=== PATIENT | female | born 1950 | race African-American/Black ===

== ENCOUNTER → 2017-07-14 | Outpatient (CLI) | payer MEDICARE, OTHER ==
--- NOTE | 2017-07-14 10:37 | WOMENS IMAGING REPORT ---
EXAM DESCRIPTION: 3D SCREENING MAMMO BILAT COMPLETED DATE/TIME: 07/14/2017 7:41 am REASON FOR STUDY: SCREENING MAMMO Z12.31 ENCNTR SCREEN MAMMOGRAM FOR MALIGNANT NEOPLASM OF LANDRY COMPARISON: Annual priors dating back to April 2009. TECHNIQUE: Standard craniocaudal and mediolateral oblique views of each breast recorded using digita l acquisition and breast tomosynthesis. LIMITATIONS: None. FINDINGS: No masses, calcifications or architectural distortion. No areas of suspicion. Read with the assistance of CAD. .[facility] - R2 Cenova Version 1.3 .[facility] - R2 Cenova Version 1.3 .[facility] - R2 Cenova Version 2.4 .[facility] [place] - R2 Cenova Version 2.4 .[facility] - R2 Cream Hauler Version 9.2 IMPRESSION: NORMAL MAMMOGRAM. BIRADS 1. BREAST DENSITY: a. The breasts are almost entirely fatty. BIRAD: 1 NEGATIVE RECOMMENDATION: ROUTINE SCREENING COMMENT: The patient has been notified of the results by letter per SA requirements. Additional no tification policies are in place for contacting patient with suspicious or incomplete findings. Quality ID #225: The [employer] recommends an annual screening mammogram for women aged 40 years or over. This facility utilizes a reminder system to ensure that all patients receive reminder letters, and/or direct phone calls for appointments. This includes reminders for routine scr eening mammograms, diagnostic mammograms, or other Breast Imaging Interventions when appropriate. Th is patient will be placed in the appropriate reminder system. The [employer] (ACR) has developed recommendations for screening MRI of the breast s in certain patient populations, to be used in conjunction with mammography. Breast MRI surveillanc e may be appropriate for women with more than 20% lifetime risk of developing breast cancer as deter mined by genetic testing, significant family history of the disease, or history of mantle radiation f or Hodgkins Disease. ACR Practice Guidelines 2008. DBT Technology DBT is a type of tomographic mammography. With conventional mammography, overlapping breast tissue ma y make lesions difficult to detect, even with good compression. DBT uses an x-ray tube that rotates a round the breast, taking images at different angles. These images are then combined to create thin sl ices of the breast that the radiologist can view as a 3D reconstruction. The [employer] unit can perform full-field digital mammograms (2D imaging); or DBT (3D imaging); or both, in a combination mode that quickly performs both the mammogram and the tomosynthesis scan while the breast is still compressed. PQRS 6045F: Fluoroscopic imaging is not utilized for breast tomosynthesis. TECHNICAL DOCUMENTATION: FINDING NUMBER: (1) ASSESSMENT: (1) JOB ID: [id number] [employer]- All Rights Reserved
== END ==
LOC: WI 07:15
PROVIDERS: ATTEND Internal Medicine
DX: Z12.31 Encounter for screening mammogram for malignant neoplasm of breast (principal)
CPT/HCPCS: 77063; G0202; 77067

== ENCOUNTER 2018-01-28 07:35 | Day surgery (SDC) | payer MEDICARE, OTHER ==
--- NOTE | 2018-01-27 21:39 | EKG REPORT ---
SEVERITY:- NORMAL ECG - SINUS RHYTHM : Confirmed by: Ashley Childress 27-Jan-2018 21:38:40
[~2018-01-28 07:35] MED LIST: CEFAZOLIN 1 GM/D5W RTU 1 GM/50 ML RTUPB IV PRN
[2018-01-28] MEDS ORDERED: MIDAZOLAM 2 MG/2 ML INJ ONE (08:39)
[2018-01-28] MEDS ORDERED: FENTANYL CITRATE INJ/PF 100 MCG/2 ML AMPUL ONE ×2 (08:39→11:05)
[2018-01-28] MEDS ORDERED: PROPOFOL INJ 200 MG/20 ML VIAL IV ONE (08:40)
[2018-01-28] MEDS ORDERED: POLYMYXIN B SULFATE INJ 500000 UNIT VIAL ONE (08:46)
[2018-01-28] MEDS ORDERED: NORMAL SALINE INJ/PF 0.9% 10 ML SDV ONE (08:46)
[2018-01-28] MEDS ORDERED: LIDOCAINE 2% INJ (20 MG/ML) 20 ML MDV ONE (08:47)
[2018-01-28] MEDS ORDERED: BACITRACIN INJ 50,000 UNIT VIAL ONE (08:47)
[2018-01-28] MEDS ORDERED: BUPIVACAINE HCL 0.5 % INJ/PF 30 ML SDV ONE (08:47)
[2018-01-28] MEDS ORDERED: KETAMINE HCL INJ 500 MG/10 ML VIAL ONE (09:19)
[2018-01-28] MEDS ORDERED: BUPIVACAINE INJ/PF LIPOSOME/PF 266 MG/20 ML SDV ONE (10:24)
[2018-01-28] MEDS ORDERED: CEFAZOLIN 1 GM/D5W RTU 1 GM/50 ML RTUPB IV ONE (12:16)
--- NOTE | 2018-01-28 12:37 | RADIOLOGY REPORT (SQ) ---
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 FLUOROSCOPY TIME: 2 seconds 2 images saved to PACS. TECHNIQUE: Intra-operative images acquired during surgical procedure to evaluate progress. NUMBER OF IMAGES: 0.2 LIMITATIONS: None. FINDINGS: 2 images reveal arthroplasty at the great toe MP joint. No malalignment or fracture evide nt on limited imaging. Please correlate with operative note. IMPRESSION: IMAGE(S) OBTAINED DURING PROCEDURE. COMMENT: Quality ID 145: Final reports for procedures using fluoroscopy that document radiation exp osure indices, or exposure time and number of fluorographic images (if radiation exposure indices are not available) Please consult full operative report of the attending physician for description of the procedure. TECHNICAL DOCUMENTATION: JOB ID: [id number] [employer]- All Rights Reserved Reading location - IP/workstation name: [email or web address]
--- NOTE | 2018-01-28 12:37 | RADIOLOGY REPORT (SQ) ---
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 FLUOROSCOPY TIME: 2 seconds 2 images saved to PACS. TECHNIQUE: Intra-operative images acquired during surgical procedure to evaluate progress. NUMBER OF IMAGES: 0.2 LIMITATIONS: None. FINDINGS: 2 images reveal arthroplasty at the great toe MP joint. No malalignment or fracture evident on limited imaging. Please correlate with operative note. IMPRESSION: IMAGE(S) OBTAINED DURING PROCEDURE. COMMENT: Quality ID 145: Final reports for procedures using fluoroscopy that document radiation exposure indices, or exposure time and number of fluorographic images (if radiation exposure indices are not available) Please consult full operative report of the attending physician for description of the procedure. TECHNICAL DOCUMENTATION: JOB ID: [id number] [employer]- All Rights Reserved Reading location - IP/workstation name: [email or web address]
--- NOTE | 2018-01-28 16:06 | SURGICARE OPERATIVE REPORT E ---
[facility] Operative Report NAME: BOONE BOWEN AGE: 67Y DATE OF SURGERY: 01/28/2018 ROOM: PREOPERATIVE DIAGNOSIS: DEGENERATIVE JOINT DISEASE OF THE FIRST METATARSOPHALANGEAL JOINT OF THE PATIENT'S RIGHT FOOT. POSTOPERATIVE DIAGNOSIS: DEGENERATIVE JOINT DISEASE OF THE FIRST METATARSOPHALANGEAL JOINT OF THE PATIENT'S RIGHT FOOT. SURGEON: ZULEIMA PA DPM PROJECT ENG SURGEON: Gaby William DPM OPERATION: Cerda bunionectomy with double stem Vilchis implant of the first metatarsophalangeal joint right foot. PROCEDURE: On 01/28/2018, the patient was admitted to [facility] with complaints of painful right foot and was taken to the operating room where following induction of intravenous sedation and regional local anesthesia, the patient's right foot was prepped. During the prep, the patient was moving and contaminated her foot. Multiple attempts were tried to get the patient to the proper level of sedation, to prevent her from moving during the procedure. It was felt by the anesthesiologist sedation was not going to be adequate for this patient, so she was converted to general anesthetic at that time. Sterile prep was completed successfully. Tourniquet was placed at proximal ankle malleoli. Sterile draping was completed. Esmarch was applied to the foot. Tourniquet was inflated to the level of 250 mmHg and purposed for hemostasis. Esmarch was removed and the following procedure performed. Attention was directed to the dorsal aspect of the patient's first metatarsophalangeal joint where a 5 cm linear incision was placed and the medial long extensor tendon was deep into the subcutaneous tissue and superficial fascia. All bleeding vessels were clamped, ligated, and Bovied as necessary for hemostasis. Incision was further deep and via sharp and blunt dissection and the long extensor tendon was identified and retracted laterally for further evaluation. Incision was made in the capsular and periosteal structures in a similar fashion as the skin incision and freed from the osseous attachments. Joints surfaces were examined and noted to have multiple erosions consistent with DJD. It was felt implant arthroplasty was the appropriate procedure. Utilizing a sagittal saw, the base of the proximal phalanx was osteotomized approximately one centimeter distal to its articular base and it was removed from the wound en toto. The head of the first metatarsal was then osteomized perpendicular to the long axis. Then, utilizing a rotary drill and a side cutting bur, the proximal and distal medullary canals of the 1st metatarsal and proximal phalanx were then reamed. Next, Kate tree rasp was then inserted. The canals were reamed, and utilizing the trial broaches, were sized for 2.0 trial implant which was inserted, tested for Range of motion, which was excellent. Size appeared to be excellent as well. Intraoperative x-rays were obtained and it was felt that #2 implant was the proper size. At this time, further reaming was performed. All sharp osseous segments were rasped smooth. The area was then flushed with copious amounts of sterile antibiotic solution and inspected for any remaining soft tissue or osseous debris, with none being noted. Toe was further examined and felt that the sesamoid apparatus was not adequately released at this time, so the dissection was carried out to the medial aspect and the tibial sesamoid was then removed from the wound en toto. The longus flexor tendon was identified and noted to be intact. The fibular sesamoid was further freed from its distal attachments and was found to be freely flowing proximal to the plantar aspect of the first metatarsal head. It was felt that retraction was adequate and the patient would not suffer any consequences of weightbearing on that sesamoid and was left intact. At that time, the implant was obtained. The grommet was placed into the first metatarsal shaft and slightly tapped for seating. The grommet to the base of the proximal phalanx was placed onto the implant. The 2-0 implant was then inserted into the first metatarsal shaft first and amended to the proximal phalanx. It should be noted that the wound was flushed with copious amounts of sterile antibiotic solution and inspected for remaining soft tissue or osseous debris prior to inserting the implant. At this time, the implant was then placed through full range of motion, which was noted to be excellent. At this time, the longer extensor tendon was transposed more midline position and temporarily clamped to the medial capsule. Intraoperative x-rays were obtained and the implant at the toe was noted to be in excellent position at this time. Range of motion was excellent, exceeding 45 degrees of dorsiflexion on the table. It was felt that the correction was excellent at this time. Capsular and periosteal structure was then coapted and maintained with simple interrupted suture of 3-0 Vicryl. The long extensor tendon was freed from its lateral most attachments and transposed more midline position and sutured to the nail capsule. Subcutaneous tissue was coapted and maintained with simple interrupted suture of 4-0 Vicryl. The skin incision was then coapted and maintained with interrupted horizontal mattress suture of 5-0 nylon. Exparel was then injected subcutaneously in the periwound area, utilizing 17 mL of Exparel. Sterile dressing consisting of Tirso silk, 4 x 4s, Pretty, Kerlix, and Coflex was applied to the patient's right foot. Tourniquet was deflated. Capillary filling time was noted to be instantaneous to all digits. The patient appeared to tolerate surgery and anesthesia well and was taken from the operating room to recovery room to be further monitored by the Anesthesia Department. DICTATING PHYSICIAN: ZULEIMA PA DPM [id number] PHY#: [id number] ID: [id number] JOB#: [id number] ACCT: [id number] cc:ZULEIMA PA DPM > MTDD
== END 2018-01-28 12:55 | disposition home or self-care (01) ==
LOC: SC 07:35
PROVIDERS: ATTEND Preventive Medicine Undersea and Hyperbaric Medicine
PROC: 0QBN0ZZ Excision of Right Metatarsal, Open Approach (ICD-10-PCS; principal; 2018-01-28 08:45)
DX: M19.071 Primary osteoarthritis, right ankle and foot (principal); I10 Essential (primary) hypertension; K21.9 Gastro-esophageal reflux disease without esophagitis; E11.9 Type 2 diabetes mellitus without complications; G47.30 Sleep apnea, unspecified; Z96.653 Presence of artificial knee joint, bilateral; E66.9 Obesity, unspecified; Z85.528 Personal history of other malignant neoplasm of kidney; Z79.899 Other long term (current) drug therapy; Z88.8 Allergy status to other drugs, medicaments and biological substances; Z90.5 Acquired absence of kidney; Z68.44 Body mass index [BMI] 60.0-69.9, adult; Z88.2 Allergy status to sulfonamides; Z79.4 Long term (current) use of insulin
CPT/HCPCS: 28292; 93005; 82962; 73620; 93010; J2250; J3490 ×6; J0690; J3010; J2704; C9290; 01480; 76000

== ENCOUNTER → 2018-07-21 | Outpatient (CLI) | payer MEDICARE, OTHER ==
--- NOTE | 2018-07-21 13:41 | WOMENS IMAGING REPORT ---
EXAM DESCRIPTION: 3D SCREENING MAMMO BILAT COMPLETED DATE/TIME: 07/21/2018 8:07 am REASON FOR STUDY: SCREENING MAMMO Z12.31 ENCNTR SCREEN MAMMOGRAM FOR MALIGNANT NEOPLASM OF LANDRY COMPARISON: 07/14/2017 and 06/06/2015. TECHNIQUE: Standard craniocaudal and mediolateral oblique views of each breast recorded using digita l acquisition and breast tomosynthesis. LIMITATIONS: None. FINDINGS: No masses, calcifications or architectural distortion. No areas of suspicion. Read with the assistance of CAD. .[facility] - R2 Cenova Version 1.3 .[facility] - R2 Cenova Version 1.3 .[facility] - R2 Cenova Version 2.4 .[facility] [place] - R2 Cenova Version 2.4 .[facility] - R2 Basting Cleaner Version 9.2 IMPRESSION: NORMAL MAMMOGRAM. BIRADS 1. BREAST DENSITY: a. The breasts are almost entirely fatty. BIRAD: 1 NEGATIVE RECOMMENDATION: ROUTINE SCREENING COMMENT: The patient has been notified of the results by letter per SA requirements. Additional no tification policies are in place for contacting patient with suspicious or incomplete findings. Quality ID #225: The [employer] recommends an annual screening mammogram for women aged 40 years or over. This facility utilizes a reminder system to ensure that all patients receive reminder letters, and/or direct phone calls for appointments. This includes reminders for routine scr eening mammograms, diagnostic mammograms, or other Breast Imaging Interventions when appropriate. Th is patient will be placed in the appropriate reminder system. The [employer] (ACR) has developed recommendations for screening MRI of the breast s in certain patient populations, to be used in conjunction with mammography. Breast MRI surveillanc e may be appropriate for women with more than 20% lifetime risk of developing breast cancer as deter mined by genetic testing, significant family history of the disease, or history of mantle radiation f or Hodgkins Disease. ACR Practice Guidelines 2008. DBT Technology DBT is a type of tomographic mammography. With conventional mammography, overlapping breast tissue ma y make lesions difficult to detect, even with good compression. DBT uses an x-ray tube that rotates a round the breast, taking images at different angles. These images are then combined to create thin sl ices of the breast that the radiologist can view as a 3D reconstruction. The [employer] unit can perform full-field digital mammograms (2D imaging); or DBT (3D imaging); or both, in a combination mode that quickly performs both the mammogram and the tomosynthesis scan while the breast is still compressed. PQRS 6045F: Fluoroscopic imaging is not utilized for breast tomosynthesis. TECHNICAL DOCUMENTATION: FINDING NUMBER: (1) ASSESSMENT: (1) JOB ID: [id number] [employer]- All Rights Reserved Reading location - IP/workstation name: [facility]
== END ==
LOC: WI 07:23
PROVIDERS: ATTEND Internal Medicine
DX: Z12.31 Encounter for screening mammogram for malignant neoplasm of breast (principal)
CPT/HCPCS: 77063; 77067

== ENCOUNTER 2018-08-05 13:54 | Emergency (ER) | payer OTHER, MEDICARE ==
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
[2018-08-05] MEDS ORDERED: ONDANSETRON 4 MG TAB.RAPDIS PO ONE (15:18)
[2018-08-05] MEDS ORDERED: MORPHINE SULFATE 10 MG/ML INJ IM ONE (15:18)
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
[2018-08-05 16:39] LABS: ABSOLUTE BASOPHILS # (AUTO) 0.1 10^3/uL (0.0-0.2); ABSOLUTE EOSINOPHILS # (AUTO) 0.4 10^3/uL (0.0-0.6); ABSOLUTE LYMPHOCYTES (AUTO) 1.6 10^3/uL (0.5-4.7); ABSOLUTE MONOCYTES (AUTO) 0.6 10^3/uL (0.1-1.4); ABSOLUTE NEUT (AUTO) 3.6 10^3/uL (1.7-8.2); BASOPHILS % (AUTO) 0.9 % (0-2); EOSINOPHILS % (AUTO) 6.4 % (0-6); HEMATOCRIT 27.7 % (36.0-47.0); HEMOGLOBIN 8.7 g/dL (12.0-15.5); LYMPHOCYTES % (AUTO) 25.7 % (13-45); MEAN CORPUSCULAR HEMOGLOBIN 28.1 pg (27.0-33.4); MEAN CORPUSCULAR HGB CONC 31.5 g/dL (32.0-36.0); MEAN CORPUSCULAR VOLUME 89 fl (80-97); MONOCYTES % (AUTO) 9.4 % (3-13); PLATELET COUNT 171 10^3/uL (150-450); RED BLOOD COUNT 3.11 10^6/uL (3.72-5.28); RED CELL DISTRIBUTION WIDTH 19.6 % (11.5-14.0); SEGMENTED NEUTROPHILS % (AUTO) 57.6 % (42-78); TOTAL CELLS COUNTED % (AUTO) 100 %; WHITE BLOOD COUNT 6.2 10^3/uL (4.0-10.5)
[2018-08-05 16:55] LABS: ANION GAP 8 (5-19); BLOOD UREA NITROGEN 17 mg/dL (7-20); CARBON DIOXIDE 24 mmol/L (22-30); CHLORIDE 111 mmol/L (98-107); GLUCOSE 89 mg/dL (75-110); POTASSIUM 4.1 mmol/L (3.6-5.0); SODIUM 142.7 mmol/L (137-145)
[2018-08-05] MEDS ORDERED: HYDROCODONE/ACETAMINOPHEN 5-325 MG (6 TAB/ER DISP) PO PRN (17:34)
[2018-08-05 17:55] VITALS: BP 135/62
--- NOTE | 2018-08-05 22:40 | EKG REPORT ---
SEVERITY:- NORMAL ECG - SINUS RHYTHM : Confirmed by: Ashley Childress 05-Aug-2018 22:40:11
== END 2018-08-05 18:00 | disposition home or self-care (01) ==
LOC: ER 13:54
DX: S20.219A Contusion of unspecified front wall of thorax, initial encounter (principal); E11.649 Type 2 diabetes mellitus with hypoglycemia without coma; R51 Headache; M54.2 Cervicalgia; R07.9 Chest pain, unspecified; V87.7XXA Person injured in collision between other specified motor vehicles (traffic), initial encounter; Z79.4 Long term (current) use of insulin; I10 Essential (primary) hypertension
CPT/HCPCS: 93005; 99284; 96372; 36415; 82962; 85025; 80048; 84484; 71046; 70450; 72125; 93010; S0119; J2270

== ENCOUNTER → 2018-08-12 | Outpatient (CLI) | payer MEDICARE, OTHER ==
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
== END ==
LOC: OD 11:15
PROVIDERS: ATTEND Internal Medicine
DX: M79.605 Pain in left leg (principal)

== ENCOUNTER → 2018-09-10 | Outpatient (CLI) | payer MEDICARE, OTHER ==
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
== END ==
LOC: SP 08:15
PROVIDERS: ATTEND Internal Medicine
DX: R22.43 Localized swelling, mass and lump, lower limb, bilateral (principal)
CPT/HCPCS: 93970

== ENCOUNTER 2018-09-14 23:16 | Emergency (ER) | payer MEDICARE, OTHER ==
[2018-09-15] MEDS ORDERED: HYDROCODONE/ACETAMINOPHEN 10-325 MG TABLET PO ONE (01:10)
--- NOTE | 2018-09-15 01:12 | ER Document Report ---
ED Medical Screen (RME) - General Chief Complaint: Fall Injury Stated Complaint: FALL, HEAD LACERATION, SHOULDER BACK AND NECK PAIN Time Seen by Provider: 09/15/18 01:09 Notes: Patient is a 68-year-old female presenting to the emergency department complaining of a head laceration after a fall. Patient states it was a mechanical fall she tripped and fell. Patient denies any lightheadedness, dizziness, weakness prior to the fall. Patient states she did not lose consciousness and has not vomited since the event. Patient did notice some blood to the right occipital area which is what prompted her visit to the emergency room. Patient states she has generalized back pain at this time as well. Patient states she uses lidocaine patches on her right arm for chronic osteoarthritis. Patient denies numbness or tingling in any extra Physical exam: Dried blood noted right occiput. Patient has a brace in her hair it is very hard to see where the dried blood came from. No active bleeding at this time. Area of dried blood is non-boggy, no hematoma or swelling noted. 5 out of 5 strength in all 4 extremities. I have greeted and performed a rapid initial assessment of this patient. A comprehensive ED assessment and evaluation of the patient, analysis of test results and completion of the medical decision making process will be conducted by additional ED providers. TRAVEL OUTSIDE OF THE [place] IN LAST 30 DAYS: No - Related Data Allergies/Adverse Reactions: pseudoephedrine [From Sudafed] Allergy (Severe, Verified 09/16/16 17:05) Anaphylaxis exenatide [From Byetta] Allergy (Verified 09/16/16 17:05) Past Medical History - Past Medical History Cardiac Medical History: Reports: Hx Hypercholesterolemia, Hx Hypertension - MEDICATED Denies: Hx Heart Attack Pulmonary Medical History: Reports: Hx COPD, Hx Sleep Apnea - On CPap Denies: Hx Asthma Neurological Medical History: Reports: Hx Migraine. Denies: Hx Cerebrovascular Accident, Hx Seizures Endocrine Medical History: Reports: Hx Diabetes Mellitus Type 2 Renal/ Medical History: Denies: Hx Peritoneal Dialysis Malignancy Medical History: Reports: Hx Renal (Kidney) Cancer - Left renal cell carcinoma GI Medical History: Reports: Hx Gastroesophageal Reflux Disease. Denies: Hx Hepatitis, Hx Hiatal Hernia, Hx Ulcer Musculoskeltal Medical History: Reports Hx Arthritis, Reports Hx Gout Psychiatric Medical History: Denies: Hx Depression Infectious Medical History: Denies: Hx Hepatitis Past Surgical History: Reports: Hx Abdominal Surgery - wound vac present, Hx Breast Surgery - reduction, Hx Cholecystectomy, Hx Hysterectomy, Hx Orthopedic Surgery - Bilateral total knee replacement, Other - Bilat breast reductn, lap band placemnt, lap band removal, left nephrectomy. Denies: Hx Mastectomy, Hx Open Heart Surgery, Hx Pacemaker - Immunizations Hx Diphtheria, Pertussis, Tetanus Vaccination: Yes Physical Exam - Vital signs Vitals: Temp Pulse Resp BP Pulse Ox 97.9 F 96 20 161/56 H 97 09/15/18 00:12 09/15/18 00:12 09/15/18 00:12 09/15/18 00:12 09/15/18 00:12 Course - Vital Signs Vital signs: Temp Pulse Resp BP Pulse Ox 97.9 F 96 20 161/56 H 97 09/15/18 00:12 09/15/18 00:12 09/15/18 00:12 09/15/18 00:12 09/15/18 00:12 Doctor's Discharge - Discharge Referrals: VALERIE SIDHU MD [Primary Care Provider] - Follow up as needed
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
[2018-09-15 03:10] VITALS: BP 159/70
== END 2018-09-15 03:10 | disposition home or self-care (01) ==
LOC: ER 23:16
DX: S09.90XA Unspecified injury of head, initial encounter (principal); S00.01XA Abrasion of scalp, initial encounter; W19.XXXA Unspecified fall, initial encounter; I10 Essential (primary) hypertension; Z79.899 Other long term (current) drug therapy; J44.9 Chronic obstructive pulmonary disease, unspecified; E11.9 Type 2 diabetes mellitus without complications
CPT/HCPCS: 99283; A9270

== ENCOUNTER 2018-10-31 19:35 | Emergency (ER) | payer MEDICARE ==
--- NOTE | 2018-10-31 21:22 | ER Document Report ---
HPI - HPI Patient complains to provider of: rash Time Seen by Provider: 10/31/18 19:54 Pain Level: 4 Context: 68 female with insulin-dependent diabetes mellitus presents to the emergency department for itchy rash on her left hand with minimal involvement on her right dorsal hand that started a few days ago. Patient states she cannot take the rash and she has recovered and she "I am going to tear my skin off and there will not be any ". Patient denies any fevers, chills, nausea, vomiting, changes in laundry soaps, changes in diet. Patient recently started using Eucrisa topical prescribed by Dr. Sidhu just prior to the rash starting. Past Medical History - Social History Smoking Status: Never Smoker Chew tobacco use (# tins/day): No Frequency of alcohol use: None Drug Abuse: None Family History: CAD, CVA, DM Patient has suicidal ideation: No Patient has homicidal ideation: No - Past Medical History Cardiac Medical History: Reports: Hx Hypercholesterolemia, Hx Hypertension - MEDICATED Denies: Hx Heart Attack Pulmonary Medical History: Reports: Hx COPD, Hx Sleep Apnea - On CPap Denies: Hx Asthma Neurological Medical History: Reports: Hx Migraine. Denies: Hx Cerebrovascular Accident, Hx Seizures Endocrine Medical History: Reports: Hx Diabetes Mellitus Type 2 Renal/ Medical History: Denies: Hx Peritoneal Dialysis Malignancy Medical History: Reports: Hx Renal (Kidney) Cancer - Left renal cell carcinoma GI Medical History: Reports: Hx Gastroesophageal Reflux Disease. Denies: Hx Hepatitis, Hx Hiatal Hernia, Hx Ulcer Musculoskeletal Medical History: Reports Hx Arthritis, Reports Hx Gout Psychiatric Medical History: Denies: Hx Depression Infectious Medical History: Denies: Hx Hepatitis Past Surgical History: Reports: Hx Abdominal Surgery - wound vac present, Hx Breast Surgery - reduction, Hx Cholecystectomy, Hx Hysterectomy, Hx Orthopedic Surgery - Bilateral total knee replacement, Other - Bilat breast reductn, lap band placemnt, lap band removal, left nephrectomy. Denies: Hx Mastectomy, Hx Open Heart Surgery, Hx Pacemaker - Immunizations Hx Diphtheria, Pertussis, Tetanus Vaccination: Yes Vertical Provider Document - CONSTITUTIONAL Agree With Documented VS: Yes Notes: PHYSICAL EXAMINATION: Reviewed vital signs and charting by RN GENERAL: Well-appearing, well-nourished and in no acute distress. HEAD: Atraumatic, normocephalic. EYES: Pupils equal round, extraocular movements intact, sclera anicteric, conjunctiva are normal. ENT: nares patent. Moist mucous membranes. NECK: Normal range of motion EXTREMITIES: Normal range of motion, no pitting or edema. No cyanosis. NEUROLOGICAL: Face symmetric. PSYCH: Normal mood, normal affect. SKIN: Warm, Dry, normal turgor, raised papular-like rash on the dorsal aspect of patient's left hand, middle finger slightly macerated from being covered with a bandage and some mild weeping of serous fluid from an area on her middle finger. Other involvement other than a small area on her right dorsal hand - INFECTION CONTROL TRAVEL OUTSIDE OF THE [place] IN LAST 30 DAYS: No Course - Re-evaluation Re-evalutation: 10/31/18 22:09 Well-appearing 68 female presents for a rash. Patient states she did start taking Eucrisa and the rash happened shortly after that. An adverse reaction of Eucrisa is a hypersensitivity reaction which could be a rash, severe itching. I instructed the patient to immediately stop applying the Eucrisa and gave her an Atarax dispense pack with a prescription for Atarax. Because the patient is an insulin-dependent diabetic and is obese I am refraining from giving her any systematic corticosteroids, but did instruct her that she could apply topical hydrocortisone. I gave her instruction that if she starts to have anaphylactic type symptoms to call 911 and come in by ambulance. Patient is stable for discharge. 10/31/18 22:11 - Vital Signs Vital signs: Temp Pulse Resp BP Pulse Ox 99.6 F 100 16 157/76 H 94 10/31/18 19:40 10/31/18 19:40 10/31/18 19:40 10/31/18 19:40 10/31/18 19:40 Discharge - Discharge Clinical Impression: Rash and nonspecific skin eruption Condition: Good Disposition: HOME, SELF-CARE Additional Instructions: You are seen in the emergency department this evening for a rash of unclear origin. It is most likely related to the Eucrisa that you recently started taking. 1 of the adverse effects is a hypersensitivity reaction which it appears that you have. Please stop using this medication immediately and follow-up with Dr. Sidhu on Friday. I have given you a medication called Atarax that you can take home with you to help get you through the weekend. I have also given you prescription for it as well that you can use for itching and inflammation. Please do not drive when taking this medication as it can cause drowsiness. If the rash continues to spread up your arms, your throat starts closing up, or you have any signs of difficulty breathing please return to the emergency department as this is signs of an anaphylactic reaction. Prescriptions: Hydroxyzine HCl [Atarax 50 mg Tablet] 50 mg PO PRN PRN #14 tablet PRN Reason: Referrals: VALERIE SIDHU MD [Primary Care Provider] - Follow up as needed
[2018-10-31] MEDS ORDERED: HYDROXYZINE PAMOATE 25 MG CAPSULE (4 CAP/ER DISP) PO ONE (21:30)
[2018-10-31 21:38] VITALS: BP 140/71
== END 2018-10-31 21:38 | disposition home or self-care (01) ==
LOC: ER 19:35
DX: R21 Rash and other nonspecific skin eruption (principal); L29.8 Other pruritus; E11.9 Type 2 diabetes mellitus without complications; Z79.4 Long term (current) use of insulin; E66.9 Obesity, unspecified; I10 Essential (primary) hypertension; J44.9 Chronic obstructive pulmonary disease, unspecified; Z85.528 Personal history of other malignant neoplasm of kidney; Z90.5 Acquired absence of kidney
CPT/HCPCS: 99282; J3490

== ENCOUNTER → 2018-11-13 | Outpatient (CLI) | payer MEDICARE, OTHER ==
--- NOTE | 2018-11-13 13:58 | RADIOLOGY REPORT (SQ) ---
EXAM DESCRIPTION: CHEST PA/LATERAL COMPLETED DATE/TIME: 11/13/2018 1:48 pm REASON FOR STUDY: SARCOIDOSIS COMPARISON: 08/05/2018 EXAM PARAMETERS: NUMBER OF VIEWS: two views TECHNIQUE: Digital Frontal and Lateral radiographic views of the chest acquired. RADIATION DOSE: NA LIMITATIONS: Low lung volumes. FINDINGS: LUNGS AND PLEURA: Persistent scarring or atelectasis in the lung bases. No effusions. MEDIASTINUM AND HILAR STRUCTURES: No masses or contour abnormalities. HEART AND VASCULAR STRUCTURES: Heart normal size. No evidence for failure. BONES: No acute findings. HARDWARE: None in the chest. OTHER: No other significant finding. IMPRESSION: Persistent scar atelectasis in the lung bases. Findings are accentuated by low lung vol umes. No consolidation. TECHNICAL DOCUMENTATION: JOB ID: [id number] [employer]- All Rights Reserved Reading location - IP/workstation name: [email or web address]
== END ==
LOC: OD 13:24
PROVIDERS: ATTEND Internal Medicine
DX: D86.9 Sarcoidosis, unspecified (principal)
CPT/HCPCS: 71046

== ENCOUNTER 2018-11-14 11:43 | Emergency (ER) | payer MEDICARE, OTHER ==
[2018-11-14] MEDS ORDERED: HYDROCODONE/ACETAMINOPHEN 5-325 MG TABLET PO ONE (13:34)
--- NOTE | 2018-11-14 13:54 | ER Document Report ---
HPI - HPI Patient complains to provider of: Wound recheck Time Seen by Provider: 11/14/18 12:29 Onset: Yesterday Quality of pain: Achy Pain Level: 4 Context: Patient states that she had a skin biopsy performed by her primary doctor in the office yesterday. Patient states the wound was sutured but the stitches seem to have come loose a little bit. Patient complains of tenderness to the site. Patient also complains of left eye itching. Patient states she was given an antibiotic eyedrop prescription but has not filled the prescription yet. Patient would also like to get her eye rechecked today. Patient denies any change in vision. Patient denies any contact lens use. Associated Symptoms: Other - Left wrist pain, left eye irritation. denies: Fever Exacerbated by: Denies Relieved by: Denies Similar symptoms previously: Yes Recently seen / treated by doctor: Yes - ROS ROS below otherwise negative: Yes Systems Reviewed and Negative: Yes All other systems reviewed and negative - CONSTITUTIONAL Constitutional: DENIES: Fever, Chills - EENT EENT: REPORTS: Eye problems - MUSCULOSKELETAL Musculoskeletal: REPORTS: Extremity pain - DERM Skin Color: Normal Notes: Sutured wound to left wrist Past Medical History - General Information source: Patient - Social History Smoking Status: Never Smoker Chew tobacco use (# tins/day): No Frequency of alcohol use: None Drug Abuse: None 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 Denies: Hx Cerebrovascular Accident, Hx Seizures Endocrine Medical History: Reports: Hx Diabetes Mellitus Type 2 Renal/ Medical History: Denies: Hx Peritoneal Dialysis Malignancy Medical History: Reports: Hx Renal (Kidney) Cancer - Left renal cell carcinoma GI Medical History: Reports: Hx Gastroesophageal Reflux Disease. Denies: Hx Hepatitis, Hx Hiatal Hernia, Hx Ulcer Musculoskeletal Medical History: Reports Hx Arthritis, Reports Hx Gout Psychiatric Medical History: Denies: Hx Depression Infectious Medical History: Denies: Hx Hepatitis Past Surgical History: Reports: Hx Abdominal Surgery - wound vac present, Hx Breast Surgery - reduction, Hx Cholecystectomy, Hx Hysterectomy, Hx Orthopedic Surgery - Bilateral total knee replacement, Other - Bilat breast reductn, lap band placemnt, lap band removal, left nephrectomy. Denies: Hx Mastectomy, Hx Open Heart Surgery, Hx Pacemaker - Immunizations Hx Diphtheria, Pertussis, Tetanus Vaccination: Yes Vertical Provider Document - CONSTITUTIONAL Agree With Documented VS: Yes Exam Limitations: No Limitations General Appearance: WD/WN, No Apparent Distress - INFECTION CONTROL TRAVEL OUTSIDE OF THE [place] IN LAST 30 DAYS: No - HEENT HEENT: Atraumatic, Normocephalic Notes: Mild injection of sclera of left eye, conjunctive inflamed, no corneal abrasion, ulcer or foreign body or dendrite. No fluorscein uptake - NECK Neck: Normal Inspection, Supple. negative: Lymphadenopathy-Left, Lymphadenopathy-Right - RESPIRATORY Respiratory: Breath Sounds Normal, No Respiratory Distress - CARDIOVASCULAR Cardiovascular: Regular Rate, Regular Rhythm Pulses: Normal: Radial - MUSCULOSKELETAL/EXTREMETIES Musculoskeletal/Extremeties: MAEW, FROM - NEURO Level of Consciousness: Awake, Alert, Appropriate Motor/Sensory: No Motor Deficit - DERM Integumentary: Warm, Dry, Laceration - Tenderness to dorsal aspect of left wrist wound with 2 intact sutures, wound slightly dehisced, no purulent drainage, no surrounding erythema Course - Re-evaluation Re-evalutation: 11/14/18 13:52 Patient has a prescription for antibiotic eyedrops given to her by her primary doctor yesterday although she has not filled this prescription yet. Patient was concerned about the tenderness that she is having to her biopsy site. No concern for infection at this time aside from the conjunctivitis. Patient encouraged to get her antibiotic drops filled and take as prescribed. Patient encouraged to follow-up with her [employer] consultant Friday as well as her primary doctor for a recheck of her biopsy site. - Vital Signs Vital signs: Temp Pulse Resp BP Pulse Ox 99.0 F 113 H 22 H 178/78 H 92 11/14/18 11:54 11/14/18 11:54 11/14/18 11:54 11/14/18 11:54 11/14/18 11:54 Discharge - Discharge Clinical Impression: Encounter for wound re-check Conjunctivitis Qualifiers: Conjunctivitis type: unspecified Laterality: left Qualified Code(s): H10.9 - Unspecified conjunctivitis Condition: Stable Disposition: HOME, SELF-CARE Instructions: Conjunctivitis ([facility]), Dressing Instructions for Open Wounds ([facility]) Additional Instructions: Return immediately for any new or worsening symptoms Followup with your primary care provider, call Friday to make a followup appointment Follow-up with your [employer] consultant, call Friday for an appointment Get eyedrop prescription filled and take as directed. Referrals: VALERIE SIDHU MD [Primary Care Provider] - 11/16/18
[2018-11-14 14:35] VITALS: BP 168/80
== END 2018-11-14 14:30 | disposition home or self-care (01) ==
LOC: ER 11:43
DX: Z48.817 Encounter for surgical aftercare following surgery on the skin and subcutaneous tissue (principal); H10.9 Unspecified conjunctivitis; T49.5X6A Underdosing of ophthalmological drugs and preparations, initial encounter; Z91.128 Patient's intentional underdosing of medication regimen for other reason; Z91.14 Patient's other noncompliance with medication regimen; M25.532 Pain in left wrist; I10 Essential (primary) hypertension; J44.9 Chronic obstructive pulmonary disease, unspecified; E11.9 Type 2 diabetes mellitus without complications; Z85.528 Personal history of other malignant neoplasm of kidney
CPT/HCPCS: 99282

== ENCOUNTER 2018-11-16 10:53 | Observation (INO) | payer MEDICARE, OTHER ==
[2018-11-16 13:34] LABS: ALANINE AMINOTRANSFERASE 34 U/L (9-52); ALBUMIN 3.8 g/dL (3.5-5.0); ALKALINE PHOSPHATASE 105 U/L (38-126); ANION GAP 7 (5-19); ASPARTATE AMINO TRANSFERASE 45 U/L (14-36); BILIRUBIN,DIRECT 0.2 mg/dL (0.0-0.4); BILIRUBIN,TOTAL 0.3 mg/dL (0.2-1.3); BLOOD UREA NITROGEN 20 mg/dL (7-20); CALCIUM 10.6 mg/dL (8.4-10.2); CARBON DIOXIDE 25 mmol/L (22-30); CHLORIDE 112 mmol/L (98-107); GLUCOSE 129 mg/dL (75-110); POTASSIUM 4.2 mmol/L (3.6-5.0); SODIUM 143.8 mmol/L (137-145); TOTAL PROTEIN 6.1 g/dL (6.3-8.2)
[2018-11-16 13:39] LABS: HEMATOCRIT 29.7 % (36.0-47.0); HEMOGLOBIN 9.7 g/dL (12.0-15.5); MEAN CORPUSCULAR HEMOGLOBIN 29.3 pg (27.0-33.4); MEAN CORPUSCULAR HGB CONC 32.6 g/dL (32.0-36.0); MEAN CORPUSCULAR VOLUME 90 fl (80-97); RED CELL DISTRIBUTION WIDTH 19.8 % (11.5-14.0); WHITE BLOOD COUNT 8.1 10^3/uL (4.0-10.5)
[2018-11-16] MEDS ORDERED: DEXTROSE 50%-WATER SYRINGE 25 GM/50 ML DOSE IV PRN (14:00)
[2018-11-16] MEDS ORDERED: DEXTROSE 40% GEL 15 GM TUBE X 2 PO PRN (14:00)
[2018-11-16] MEDS ORDERED: DEXTROSE 40% GEL 15 GM TUBE PO PRN (14:00)
[2018-11-16] MEDS ORDERED: GLUCAGON,HUMAN RECOMB 1 MG INJ IM PRN (14:00)
[2018-11-16] MEDS ORDERED: DEXTROSE 50%-WATER SYRINGE 12.5 GM/25 ML DOSE IV PRN (14:00)
[2018-11-16 14:02] LABS: PLATELET COUNT 152 10^3/uL (150-450)
[2018-11-16] MEDS: METHYLPREDNISOLONE INJ 125 MG/2 ML SDV IV SCH ×2 (14:09→17:59)
[2018-11-16] MEDS: NORMAL SALINE 1000 ML 1,000 ML IV PRN (14:09)
[2018-11-16] MEDS: INSULIN LISPRO 100 UNIT/ML 3 ML VIAL SUBCUT SCH ×3 (16:53→22:10)
[2018-11-16] MEDS ORDERED: CHLORPHENIRAMINE MALEATE 4 MG TABLET PO PRN (18:33)
[2018-11-16] MEDS ORDERED: CYCLOBENZAPRINE HCL 10 MG TABLET PO PRN (18:33)
[2018-11-16] MEDS ORDERED: PHENTERMINE HCL 37.5 MG PO SCH (18:45)
--- NOTE | 2018-11-16 18:50 | RADIOLOGY REPORT (SQ) ---
EXAM DESCRIPTION: CHEST SINGLE VIEW COMPLETED DATE/TIME: 11/16/2018 6:12 pm REASON FOR STUDY: sob COMPARISON: 11/13/2018. EXAM PARAMETERS: NUMBER OF VIEWS: One view. TECHNIQUE: Single frontal radiographic view of the chest acquired. RADIATION DOSE: NA LIMITATIONS: None. FINDINGS: LUNGS AND PLEURA: No opacities, masses or pneumothorax. No pleural effusion. MEDIASTINUM AND HILAR STRUCTURES: No masses. Contour normal. HEART AND VASCULAR STRUCTURES: Heart normal in size. Normal vasculature. BONES: No acute findings. HARDWARE: None in the chest. OTHER: No other significant finding. IMPRESSION: NO ACUTE RADIOGRAPHIC FINDING IN THE CHEST. TECHNICAL DOCUMENTATION: JOB ID: [id number] [employer] All Rights Reserved Reading location - IP/workstation name: [email or web address]
[2018-11-16] MEDS ORDERED: HYDROXYZINE HCL 10 MG TABLET PO PRN (19:24)
[2018-11-16 20:39] LABS: ARTERIAL BLOOD BASE EXCESS -4.7 mmol/L; ARTERIAL BLOOD H2CO3 1.17 mmol/L (1.05-1.35); ARTERIAL BLOOD HCO3 20.6 mmol/L (20-24); ARTERIAL BLOOD PH 7.34 (7.35-7.45); ARTERIAL BLOOD PO2 85.9 mmHg (80-100); ARTERIAL BLOOD TOTAL CO2 21.8 mmol/L (21-25)
[2018-11-16] MEDS: LIDOCAINE 5% (700 MG) TRANSDERMAL ADH..PATCH TOP SCH (20:40)
[2018-11-16] MEDS: GABAPENTIN 300 MG CAPSULE PO SCH ×2 (20:40→21:09)
[2018-11-16 20:41] LABS: ARTERIAL BLOOD FIO2 2L
[2018-11-16] MEDS: ATORVASTATIN CALCIUM 40 MG TABLET PO SCH (21:08)
[2018-11-16] MEDS: BUPROPION HCL 100 MG TABLET PO SCH (21:08)
[2018-11-16] MEDS: DOXEPIN HCL 25 MG CAPSULE PO SCH (21:09)
[2018-11-16] MEDS: SUCRALFATE 1 GM TABLET PO SCH (21:28)
[2018-11-16] MEDS: LOSARTAN POTASSIUM 50 MG TABLET PO SCH (21:30)
[2018-11-16] MEDS: COLCHICINE 0.6 MG TABLET PO SCH (21:30)
[2018-11-16] MEDS: PRAMIPEXOLE DI-HCL 0.25 MG TABLET PO SCH (21:31)
[2018-11-16] MEDS: TOPIRAMATE 25 MG TABLET PO SCH (21:32)
--- NOTE | 2018-11-16 21:52 | PDOC H&P ---
History of Present Illness Admission Date/PCP: 11/16/18 10:53 VALERIE SIDHU MD History of Present Illness: BOONE BOWEN is a 68 year old female, She came to the office today for e valuation of uncontrolled diabetes, she has skin lesion that looks suspicious for sarcoidosis, I saw her on Friday in the office I did a punch biopsy of 1 of the lesion, the pathology result is not back yet. She was prescribed prednisone p.o. 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 I brought her in for observation because of the hyperglycemia which is secondary to the prednisone I thought she needed to be admitted in a controlled environment to administer the Glucocorticoid and also monitor the blood sugar very closely for 24 hours after which she will be discharged. She has history of diabetes mellitus, she is morbidly obese the BMI is 64 despite a history of gastric bypass surgery, history of kidney cancer status post cryosurgery.The skin lesion is diffuse edema involving predominantly the upper extremities it is scaly with areas of plaque Past Medical History Cardiac Medical History: Reports: Hyperlipidema, Hypertension Pulmonary Medical History: Reports: Asthma, Sleep Apnea - On CPap Neurological Medical History: Reports: Migraine Endocrine Medical History: Reports: Diabetes Mellitus Type 2, Other - Morbid obesity BMI 64 Malignancy Medical History: Reports: Renal (Kidney) Cancer - Left renal cell carcinoma Musculoskeltal Medical History: Reports: Arthritis, Gout Hematology: Reports: Anemia Past Surgical History Past Surgical History: Reports: Cholecystectomy, Hysterectomy, Orthopedic Surgery - Bilateral total knee replacement, Other - Bilat breast reductn, lap band placemnt, lap band removal, left nephrectomy Social History Smoking Status: Former Smoker Frequency of Alcohol Use: None Hx Recreational Drug Use: No Drugs: None Hx Prescription Drug Abuse: No - Advance Directive Resuscitation Status: Full Code Family History Family History: CAD, CVA, DM Parental Family History Reviewed: Yes Children Family History Reviewed: Yes Sibling(s) Family History Reviewed.: Yes Medication/Allergy Home Medications: Aspirin [Ecotrin 81 mg EC Tablet] 81 mg PO DAILY 11/16/18 Bupropion HCl [Bupropion HCl Sr] 150 mg PO Q12 11/16/18 Chlorpheniramine Maleate [Chlor-Trimeton 4 mg Tablet] 4 mg PO Q6HP PRN 11/16/18 Colchicine [Colchicine 0.6 mg Tablet] 0.6 mg PO BID 11/16/18 Cyclobenzaprine HCl [Flexeril 10 mg Tablet] 10 mg PO Q8HP PRN 11/16/18 Doxepin HCl 100 mg PO QHS 11/16/18 Furosemide [Lasix 40 mg Tablet] 40 mg PO DAILY 11/16/18 Gabapentin [Neurontin 300 mg Capsule] 300 mg PO Q8 11/16/18 Hydroxyzine HCl [Atarax 50 mg Tablet] 50 mg PO Q8HP PRN 11/16/18 Insulin Glargine,Hum.rec.anlog [Lantus Insulin 100 Unit/1 ml 10 ml] 80 units SQ QHS 11/16/18 Insulin Lispro [Humalog Insulin (Lispro) 100 unit/mL] 35 units SQ QHS 11/16/18 Lidocaine [Lidoderm 5% (700 mg) Transdermal Patch] 1 patch TOP DAILY 11/16/18 Losartan Potassium [Cozaar 50 mg Tablet] 50 mg PO DAILY 11/16/18 Pantoprazole Sodium [Protonix] 40 mg PO DAILY 11/16/18 Phentermine HCl [Adipex-P] 37.5 mg PO DAILY 11/16/18 Pramipexole Di-HCl [Pramipexole Dihydrochloride] 0.125 mg PO QHS 11/16/18 Rosuvastatin Calcium [Crestor 20 mg Tablet] 20 mg PO QHS 11/16/18 Sitagliptin Phosphate [Januvia] 100 mg PO DAILY 11/16/18 Sucralfate [Carafate 1 gm Tablet] 1 gm PO QID 11/16/18 Terbinafine HCl [Lamisil 250 mg Tablet] 250 mg PO DAILY 11/16/18 Topiramate [Topamax] 50 mg PO Q12 11/16/18 Allergies/Adverse Reactions: pseudoephedrine [From Sudafed] Allergy (Severe, Verified 11/14/18 11:44) Anaphylaxis exenatide [From Byetta] Allergy (Verified 11/14/18 11:44) Review of Systems Constitutional: ABSENT: chills, fever(s), headache(s), weight gain, weight loss Eyes: ABSENT: visual disturbances Ears: ABSENT: hearing changes Cardiovascular: PRESENT: dyspnea on exertion. ABSENT: chest pain, edema, orthropnea, palpitations Respiratory: ABSENT: cough, hemoptysis Gastrointestinal: ABSENT: abdominal pain, constipation, diarrhea, hematemesis, hematochezia, nausea, vomiting Genitourinary: ABSENT: dysuria, hematuria Musculoskeletal: ABSENT: joint swelling Integumentary: PRESENT: rash. ABSENT: wounds Neurological: ABSENT: abnormal gait, abnormal speech, confusion, dizziness, focal weakness, syncope Psychiatric: ABSENT: anxiety, depression, homidical ideation, suicidal ideation Endocrine: ABSENT: cold intolerance, heat intolerance, menstrual abnormalities, polydipsia, polyuria Hematologic/Lymphatic: ABSENT: easy bleeding, easy bruising, lymphadenopathy Physical Exam Vital Signs: Temp Pulse Resp BP Pulse Ox 98.5 F 96 17 172/88 H 93 11/16/18 19:00 11/16/18 19:00 11/16/18 19:00 11/16/18 19:00 11/16/18 20:32 Intake & Output 11/15/18 11/16/18 11/17/18 06:59 06:59 06:59 Intake Total 1146 Balance 1146 Weight 175.994 kg General appearance: PRESENT: no acute distress, morbidly obese Head exam: PRESENT: atraumatic, normocephalic Eye exam: PRESENT: PERRLA Ear exam: PRESENT: normal external ear exam Neck exam: PRESENT: full ROM Respiratory exam: PRESENT: clear to auscultation patti Cardiovascular exam: PRESENT: RRR, +S1, +S2 Vascular exam: PRESENT: normal capillary refill GI/Abdominal exam: PRESENT: normal bowel sounds, soft Rectal exam: PRESENT: deferred Neurological exam: PRESENT: alert, CN II-XII grossly intact Psychiatric exam: PRESENT: appropriate affect, normal mood Skin exam: PRESENT: rash Results Laboratory Results: 11/16/18 12:06 11/16/18 12:06 11/16/18 11/16/18 11/16/18 12:06 12:06 20:25 WBC 8.1 RBC 3.30 L Hgb 9.7 L Hct 29.7 L MCV 90 MCH 29.3 MCHC 32.6 RDW 19.8 H Plt Count 152 Carbonic Acid 1.17 HCO3/H2CO3 Ratio 17:1 ABG pH 7.34 L ABG pCO2 39.0 ABG pO2 85.9 ABG HCO3 20.6 ABG O2 Saturation 96.0 ABG Base Excess -4.7 FiO2 2L Sodium 143.8 Potassium 4.2 Chloride 112 H Carbon Dioxide 25 Anion Gap 7 BUN 20 Creatinine 1.69 H Est GFR ( Amer) 37 L Est GFR (Non-Af Amer) 30 L Glucose 129 H Calcium 10.6 H Total Bilirubin 0.3 AST 45 H ALT 34 Alkaline Phosphatase 105 Total Protein 6.1 L Albumin 3.8 Impressions: Chest X-Ray 11/16/18 00:00 IMPRESSION: NO ACUTE RADIOGRAPHIC FINDING IN THE CHEST. Assessment & Plan - Diagnosis (1) Uncontrolled diabetes mellitus Qualifiers: Diabetes mellitus type: type 2 Glycemic state: with hyperglycemia Qualified Code(s): E11.65 - Type 2 diabetes mellitus with hyperglycemia Is this a current diagnosis for this admission?: Yes Plan: She stated that the blood sugar was over 400 she was brought into the hospital for hydration and close monitoring of the blood sugar in light of the use of glucocorticoid in this patient (2) Dermatitis Is this a current diagnosis for this admission?: Yes Plan: The lesion looks suspicious for sarcoidosis (3) Shortness of breath Is this a current diagnosis for this admission?: Yes Plan: She recounted of shortness of breath, the ABG that was done demonstrated mild metabolic acidosis the PO2 is,normal. The chest x-ray is negative for any acute pathology
[2018-11-16] MEDS ORDERED: INSULIN GLARGINE,HUM.REC.ANLOG 1,000 UNIT/10 ML UNIT SUBCUT SCH (22:00)
[2018-11-16] MEDS ORDERED: (PENDING PHARMACY ID) (Pramipexole Di-Hcl [Pramipexole Dihydrochloride] 0.125 MG) PO SCH (22:00)
[2018-11-16] MEDS ORDERED: (PENDING PHARMACY ID) (Doxepin Hcl [Doxepin Hcl] 100 MG) PO SCH (22:00)
[2018-11-16] MEDS ORDERED: (PENDING PHARMACY ID) (Rosuvastatin Calcium [Crestor 20 Mg Tablet] 20 MG) PO SCH (22:00)
[2018-11-16] MEDS: ENOXAPARIN SODIUM INJ 40 MG/0.4 ML DISP.SYRIN SUBCUT SCH (22:02)
[2018-11-16 23:05] LABS: CREATINE KINASE MB 0.61 ng/mL (<4.55)
[2018-11-16 23:07] LABS: TROPONIN I < 0.012 ng/mL
[2018-11-17] MEDS: METHYLPREDNISOLONE INJ 125 MG/2 ML SDV IV SCH ×2 (00:14→05:03)
[2018-11-17] MEDS: NORMAL SALINE 1000 ML 1,000 ML IV PRN (04:33)
[2018-11-17] MEDS: LANSOPRAZOLE 30 MG TAB.RAP.DR PO SCH (05:03)
[2018-11-17] MEDS: BUPROPION HCL 100 MG TABLET PO SCH ×3 (05:03→21:34)
[2018-11-17] MEDS: GABAPENTIN 300 MG CAPSULE PO SCH ×3 (05:03→21:34)
[2018-11-17 06:02] LABS: CREATINE KINASE MB 0.54 ng/mL (<4.55)
[2018-11-17 06:19] LABS: TROPONIN I < 0.012 ng/mL
[2018-11-17] MEDS: INSULIN LISPRO 100 UNIT/ML 3 ML VIAL SUBCUT SCH ×5 (08:22→21:36)
--- NOTE | 2018-11-17 09:19 | Physician Advisory Note ---
Physician Advisor ProgressNote .: Pursuant to the plan for Fernando Hein, I have reviewed the medical record for this patient. Physician Advisor Statement: Nice documentation of obesity w/BMI, NADJA w/CPAP. Cr 1.69, Hgb 9.7. 2015 ECHO = grade 2 diast dysfn, nl EF. Please consider documenting, if you agree: 1. ? "DAVEY due to ___, baseline Cr =____" vs "CKD stage 3" 2. "Chronic anemia due to " (nutritional ___ defic? chronic blood loss due to ___?) 3. "acute/chronic SOB, suspect due to " (anemia? deconditioning + morbid obesity? acute/chronic CHF?) 4. "acute/chronic diastolic CHF" vs. "CHF was ruled out", vs. ... Status: Medicare pt, approp'ly Obs. - If pt develops acute clinical issue that requires ongoing hospital ca re/monitoring for a 2nd MN, please make reasons for concern explicit before considering conversion to Inpt status. Thanks! CK
[2018-11-17] MEDS: SUCRALFATE 1 GM TABLET PO SCH ×4 (10:53→21:33)
[2018-11-17] MEDS: TOPIRAMATE 25 MG TABLET PO SCH ×2 (10:53→21:35)
[2018-11-17] MEDS: LOSARTAN POTASSIUM 50 MG TABLET PO SCH (10:53)
[2018-11-17] MEDS: COLCHICINE 0.6 MG TABLET PO SCH ×2 (10:53→17:20)
[2018-11-17] MEDS: ENOXAPARIN SODIUM INJ 40 MG/0.4 ML DISP.SYRIN SUBCUT SCH (10:54)
[2018-11-17] MEDS: SITAGLIPTIN PHOSPHATE 50 MG TABLET PO SCH (10:54)
[2018-11-17] MEDS: LIDOCAINE 5% (700 MG) TRANSDERMAL ADH..PATCH TOP SCH (10:55)
[2018-11-17] MEDS ORDERED: INSULIN LISPRO 100 UNIT/ML 3 ML VIAL ONE (11:46)
[2018-11-17 17:15] LABS: CREATINE KINASE MB 0.54 ng/mL (<4.55)
[2018-11-17 17:21] LABS: TROPONIN I < 0.012 ng/mL
[2018-11-17] MEDS: DOXEPIN HCL 25 MG CAPSULE PO SCH (21:33)
[2018-11-17] MEDS: PRAMIPEXOLE DI-HCL 0.25 MG TABLET PO SCH (21:33)
[2018-11-17] MEDS: ATORVASTATIN CALCIUM 40 MG TABLET PO SCH (21:34)
[2018-11-17] MEDS ORDERED: INSULIN GLARGINE,HUM.REC.ANLOG 1,000 UNIT/10 ML UNIT SUBCUT SCH (22:00)
[2018-11-18] MEDS: GABAPENTIN 300 MG CAPSULE PO SCH ×2 (05:46→13:03)
[2018-11-18] MEDS: BUPROPION HCL 100 MG TABLET PO SCH ×2 (05:46→13:02)
[2018-11-18] MEDS: LANSOPRAZOLE 30 MG TAB.RAP.DR PO SCH (05:46)
[2018-11-18] MEDS: LOSARTAN POTASSIUM 50 MG TABLET PO SCH (09:57)
[2018-11-18] MEDS: SITAGLIPTIN PHOSPHATE 50 MG TABLET PO SCH (09:58)
[2018-11-18] MEDS: TOPIRAMATE 25 MG TABLET PO SCH (09:58)
[2018-11-18] MEDS: SUCRALFATE 1 GM TABLET PO SCH ×2 (09:59→13:03)
[2018-11-18] MEDS: COLCHICINE 0.6 MG TABLET PO SCH (09:59)
[2018-11-18] MEDS: ENOXAPARIN SODIUM INJ 40 MG/0.4 ML DISP.SYRIN SUBCUT SCH (10:02)
[2018-11-18] MEDS: LIDOCAINE 5% (700 MG) TRANSDERMAL ADH..PATCH TOP SCH (10:04)
[2018-11-18] MEDS: INSULIN LISPRO 100 UNIT/ML 3 ML VIAL SUBCUT SCH ×2 (10:10→11:54)
--- NOTE | 2018-11-18 11:22 | RADIOLOGY REPORT (SQ) ---
EXAM DESCRIPTION: SHOULDER BILAT 2 OR MORE VIEWS COMPLETED DATE/TIME: 11/18/2018 11:00 am REASON FOR STUDY: shoulder pain E11.628 TYPE 2 DIABETES MELLITUS WITH OTHER SKIN COMPLICATIO E13.8 OTH DIABETES MELLITUS WITH UNSPECIFIED COMPLICATIONS COMPARISON: None. NUMBER OF VIEWS: Three views. TECHNIQUE: Internal rotation, external rotation, and Y view images acquired of the right and left sh oulder. LIMITATIONS: None. FINDINGS: MINERALIZATION: Normal. BONES: No acute fracture or dislocation. No worrisome bone lesions. JOINTS: No right or left shoulder glenohumeral dislocation. No worrisome widening of the AC joints. Bilateral AC joint arthropathy is present. Subacromial spaces are narrowed bilaterally. VISUALIZED LUNGS AND RIBS: No pneumothorax. No rib fracture. SOFT TISSUES: No radiopaque foreign body. OTHER: No other significant finding. IMPRESSION: No acute fracture or malalignment. Bilateral AC joint hypertrophy, bony spurring along the undersurface of the acromion and clavicle lauren rowing the subacromial spaces. TECHNICAL DOCUMENTATION: JOB ID: [id number] [employer]- All Rights Reserved Reading location - IP/workstation name: [email or web address]
[2018-11-18 12:02] VITALS: BP 192/102
[2018-11-18] MEDS ORDERED: CLONIDINE HCL 0.2 MG TABLET PO ONE (12:40)
[2018-11-18] MEDS ORDERED: HYDROCODONE/ACETAMINOPHEN 10-325 MG TABLET PO ONE (12:41)
--- NOTE | 2018-11-18 15:33 | PDOC DISCHARGE SUMMARY ---
General - Admit/Disc Date/PCP Admission Date/Primary Care Provider: 11/16/18 10:53 VALERIE SIDHU MD Discharge Date: 11/18/18 - Discharge Diagnosis (1) Uncontrolled diabetes mellitus Is this a current diagnosis for this admission?: Yes (2) Dermatitis Is this a current diagnosis for this admission?: Yes (3) Shortness of breath Is this a current diagnosis for this admission?: Yes (4) Osteoarthritis of both shoulders Is this a current diagnosis for this admission?: Yes (5) Morbid obesity due to excess calories Is this a current diagnosis for this admission?: Yes - Additional Information Resuscitation Status: Full Code Home Medications: Aspirin [Ecotrin 81 mg EC Tablet] 81 mg PO DAILY 11/16/18 Bupropion HCl [Bupropion HCl Sr] 150 mg PO Q12 11/16/18 Chlorpheniramine Maleate [Chlor-Trimeton 4 mg Tablet] 4 mg PO Q6HP PRN 11/16/18 Colchicine [Colchicine 0.6 mg Tablet] 0.6 mg PO BID 11/16/18 Cyclobenzaprine HCl [Flexeril 10 mg Tablet] 10 mg PO Q8HP PRN 11/16/18 Doxepin HCl 100 mg PO QHS 11/16/18 Furosemide [Lasix 40 mg Tablet] 40 mg PO DAILY 11/16/18 Gabapentin [Neurontin 300 mg Capsule] 300 mg PO Q8 11/16/18 Hydroxyzine HCl [Atarax 50 mg Tablet] 50 mg PO Q8HP PRN 11/16/18 Insulin Glargine,Hum.rec.anlog [Lantus Insulin 100 Unit/1 ml 10 ml] 80 units SQ QHS 11/16/18 Insulin Lispro [Humalog Insulin (Lispro) 100 unit/mL] 35 units SQ QHS 11/16/18 Lidocaine [Lidoderm 5% (700 mg) Transdermal Patch] 1 patch TOP DAILY 11/16/18 Losartan Potassium [Cozaar 50 mg Tablet] 50 mg PO DAILY 11/16/18 Pantoprazole Sodium [Protonix] 40 mg PO DAILY 11/16/18 Phentermine HCl [Adipex-P] 37.5 mg PO DAILY 11/16/18 Pramipexole Di-HCl [Pramipexole Dihydrochloride] 0.125 mg PO QHS 11/16/18 Rosuvastatin Calcium [Crestor 20 mg Tablet] 20 mg PO QHS 11/16/18 Sitagliptin Phosphate [Januvia] 100 mg PO DAILY 11/16/18 Sucralfate [Carafate 1 gm Tablet] 1 gm PO QID 11/16/18 Terbinafine HCl [Lamisil 250 mg Tablet] 250 mg PO DAILY 11/16/18 Topiramate [Topamax] 50 mg PO Q12 11/16/18 History of Present Illness History of Present Illness: BOONE BOWEN is a 68 year old female, She came to the office today for evaluation of uncontrolled diabetes, she has skin lesion that looks suspicious for sarcoidosis, I saw her on Friday in the office I did a punch biopsy of 1 of the lesion, the pathology result is not back yet. She was prescribed prednisone p.o. 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 I brought her in for observation because of the hyperglycemia which is secondary to the prednisone I thought she needed to be admitted in a controlled environment to administer the Glucocorticoid and also monitor the blood sugar very closely for 24 hours after which she will be discharged. She has history of diabetes mellitus, she is morbidly obese the BMI is 64 despite a history of gastric bypass surgery, history of kidney cancer status post cryosurgery.The skin lesion is diffuse edema involving predominantly the upper extremities it is scaly with areas of plaque Hospital Course Hospital Course: She was admitted for the management of hyperglycemia, she has diabetes mellitus type 2, she requires intravenous glucocorticoid for treatment of suspicious skin sarcoidosis, she has shoulder pain bilaterally x-ray was done confirmed AC joint disease, patient complain of pain she required opioid hydrocodone, she is not a good candidate for NSAID because of her CKD Physical Exam Vital Signs: Temp Pulse Resp BP Pulse Ox 97.8 F 95 25 H 206/92 H 100 11/18/18 11:16 11/18/18 11:16 11/18/18 11:16 11/18/18 11:16 11/18/18 11:16 Intake & Output 11/17/18 11/18/18 11/19/18 06:59 06:59 06:59 Intake Total 2786 2208 210 Balance 2786 2208 210 Weight 175.994 kg General appearance: PRESENT: no acute distress Head exam: PRESENT: atraumatic, normocephalic Eye exam: PRESENT: conjunctiva pink, EOMI, PERRLA Ear exam: PRESENT: normal external ear exam Mouth exam: PRESENT: moist, tongue midline Neck exam: PRESENT: full ROM Respiratory exam: PRESENT: clear to auscultation patti Cardiovascular exam: PRESENT: RRR, +S1, +S2 Pulses: PRESENT: normal dorsalis pedis pul, +2 pedal pulses bilateral Vascular exam: PRESENT: normal capillary refill GI/Abdominal exam: PRESENT: normal bowel sounds, soft Rectal exam: PRESENT: deferred Neurological exam: PRESENT: alert. ABSENT: motor sensory deficit Skin exam: PRESENT: dry, intact, warm Results Laboratory Results: 11/16/18 12:06 11/16/18 12:06 11/16/18 11/16/18 11/17/18 22:28 22:28 04:59 Creatine Kinase 56 51 CK-MB (CK-2) 0.61 Troponin I < 0.012 11/17/18 11/17/18 11/17/18 04:59 16:05 16:05 Creatine Kinase 39 CK-MB (CK-2) 0.54 0.54 Troponin I < 0.012 < 0.012 Impressions: Chest X-Ray 11/16/18 00:00 IMPRESSION: NO ACUTE RADIOGRAPHIC FINDING IN THE CHEST. Shoulder X-Ray 11/18/18 00:00 IMPRESSION: No acute fracture or malalignment. Bilateral AC joint hypertrophy, bony spurring along the undersurface of the acromion and clavicle narrowing the subacromial spaces. Qualifiers - * PATIENT BEING DISCHARGED WITH ANY OF THE FOLLOWING DIAGNOSIS: No
== END 2018-11-18 14:18 | disposition left against medical advice (07) ==
LOC: 5TH 10:53 → 4N 10:54
PROVIDERS: ADMIT Internal Medicine; ATTEND Internal Medicine
DX: E09.65 Drug or chemical induced diabetes mellitus with hyperglycemia (principal); T38.0X5A Adverse effect of glucocorticoids and synthetic analogues, initial encounter; L30.9 Dermatitis, unspecified; R06.02 Shortness of breath; E66.01 Morbid (severe) obesity due to excess calories; M19.011 Primary osteoarthritis, right shoulder; M19.012 Primary osteoarthritis, left shoulder; I12.9 Hypertensive chronic kidney disease with stage 1 through stage 4 chronic kidney disease, or unspecified chronic kidney disease; E11.22 Type 2 diabetes mellitus with diabetic chronic kidney disease; N18.9 Chronic kidney disease, unspecified; G47.30 Sleep apnea, unspecified; Z68.44 Body mass index [BMI] 60.0-69.9, adult; Z98.84 Bariatric surgery status; Z85.528 Personal history of other malignant neoplasm of kidney; Z79.82 Long term (current) use of aspirin; Z79.899 Other long term (current) drug therapy; Z79.4 Long term (current) use of insulin; Z98.890 Other specified postprocedural states; Z90.5 Acquired absence of kidney; Z96.653 Presence of artificial knee joint, bilateral; Z90.49 Acquired absence of other specified parts of digestive tract; Z90.710 Acquired absence of both cervix and uterus; Z87.891 Personal history of nicotine dependence
CPT/HCPCS: 36415 ×2; 82553 ×2; 82962 ×3; 82803; 82550 ×2; 85027; 80076; 80048; 84484 ×2; 83036; 85379; 71045; 73030; 36600; G0378 ×3; G0379; A9270 ×34; J2930 ×2; J1650 ×2; J7030 ×2; J1815; J3490